=== PATIENT | female | born 1960 | race Caucasian/White ===

== ENCOUNTER 2019-09-30 08:55 | Emergency (ER) | payer MEDICAID ==
[~2019-09-30] VITALS: Ht 157.5 cm; Wt 81.8 kg
[2019-09-30 09:10] VITALS: BP 112/69
[2019-09-30] MEDS ORDERED: IBUP-1984 PO (10:52)
== END 2019-09-30 11:01 | disposition home or self-care (01) ==
LOC: ER 08:55
DX: S80.11XA Contusion of right lower leg, initial encounter (principal); Z79.899 Other long term (current) drug therapy; W01.0XXA Fall on same level from slipping, tripping and stumbling without subsequent striking against object, initial encounter; Y93.89 Activity, other specified; Y92.89 Other specified places as the place of occurrence of the external cause; Y99.8 Other external cause status
CPT/HCPCS: 73590; 99283

== ENCOUNTER → 2019-11-16 | Day surgery (SDC) | payer MEDICAID ==
[~2019-11-16] VITALS: Ht 157.5 cm; Wt 87.3 kg
[2019-11-16] VITALS (8 sets, daily range): BP systolic 96–126; BP diastolic 55–73
[~2019-11-16] MED LIST: BUPIVAcaine/PF 2.5 mg/ml (0.25%) 30ml vial ONE; LIDOcaine 1% 30ml preserv. free vial ONE; MIDAZolam 5mg/5ml vial ONE; NO HOME MEDS; acetaminophen 1,000mg/100ml IV 100 ML IV PRN; cefazolin/dext.iso 2gm/100ml 100 ML IV ONE; famotidine 20mg tablet PO ONE; fentaNYL/PF 50MCG/1 ML 2ML syringe ONE; meperidine/PF 25mg/ml syringe IV PRN; morphine 2 MG/ML inj. syringe IV PRN; morphine 4 MG/ML inj SYRINge IV PRN; ondansetron/PF 4mg/2ml inj IV PRN; proCHLORperazine 10 MG/2 ml inj IV PRN; propofol inj 20 ML IV ONE; ringers solution, lacted 1,000 ML IV SCH
[2019-11-16 08:16] LABS: ALBUMIN 3.4 G/DL (3.4-5.0); ALBUMIN/GLOBULIN RATIO 0.9 (1.1-1.5); ALKALINE PHOSPHATASE 143 IU/L (46-116); BLOOD UREA NITROGEN 13 MG/DL (7-18); BUN/CREATININE RATIO 15.7 (6.6-38.0); CALCIUM 8.4 MG/DL (8.5-10.1); CHLORIDE 105 MMOL/L (99-107); CREATININE 0.83 MG/DL (0.40-0.90); PRE OP ALT 43 U/L (30-65); PRE OP ANION GAP 8 (8-16); PRE OP AST 54 U/L (10-37); PRE OP BILIRUB, TOTAL 2.2 MG/DL (0.0-1.0); PRE OP GLUCOSE 99 MG/DL (70-104); PRE OP SODIUM 143 MMOL/L (135-145); TOTAL CARBON DIOXIDE 29.9 MMOL/L (24-32); TOTAL PROTEIN 7.4 G/DL (6.4-8.2); eGFR 70 ML/MIN
[2019-11-16 08:22] LABS: BASOPHILS % (AUTO) 0.5 % (0-1); EOSINOPHILS # (AUTO) 0.1 X10'3 (0-0.9); EOSINOPHILS % (AUTO) 2.4 % (0-6); LYMPHOCYTES # (AUTO) 1.8 X10'3 (1.1-4.8); LYMPHOCYTES % (AUTO) 37.1 % (21-51); MEAN CORPUSCULAR HEMOGLOBIN 28.4 PG (27.0-31.0); MEAN CORPUSCULAR HGB CONC 33.8 g/dL (33.0-36.5); MEAN CORPUSCULAR VOLUME 84.2 FL (78-98); MONOCYTES # (AUTO) 0.4 X10'3 (0-0.9); MONOCYTES % (AUTO) 7.9 % (2-12); NEUTROPHILS # (AUTO) 2.6 X10'3 (1.8-7.7); NEUTROPHILS % (AUTO) 52.1 % (42-75); PRE OP HEMATOCRIT 41.9 % (35.0-45.0); PRE OP HEMOGLOBIN 14.2 g/dL (12.0-16.0); PRE OP PLATELET COUNT 165 X10'3 (140-440); RED BLOOD COUNT 4.98 X10'6 (4.20-5.60); RED CELL DISTRIBUTION WIDTH 15.8 % (11.5-14.5)
--- NOTE | 2019-11-16 10:20 | NUR ---
RECIEVED FROM OR VIA [facility] ACCOMPANIED BY ANESTHESIOLOGIST DR BECKFORD, REPORT GIVEN. PT A&O, DENIES PAIN AT THIS TIME. 20 GAUGE PIV L HAND PATENT AND RUNNING LR AT 100 ML/HR, DANIELLE, F[place], 4X4 AND FOAM TAPE DRESSING R UPPER BACK CDI. Addendum: 11/16/19 at 1101 by Flora Thompson RN Amended: Links added.
--- NOTE | 2019-11-16 11:20 | NUR ---
PT A&O, DENIES PAIN AT THIS TIME. 20 GAUGE PIV L HAND REMOVED, CATHETER TIP INTACT, SANTOS, VSS, 4X4 AND FOAM TAPE DRESSING R UPPER BACK CDI. DISCHARGE INSTRUCTIONS GIVEN, PT EXPRESSED UNDERSTANDING, TRANSFERRED VIA WHEELCHAIR TO UBER RIDE TO HOME.
== END | disposition home or self-care (01) ==
LOC: PAS 06:21
PROVIDERS: ATTEND Surgery
DX: R22.2 Localized swelling, mass and lump, trunk (principal); M79.89 Other specified soft tissue disorders; Z79.899 Other long term (current) drug therapy; Z87.891 Personal history of nicotine dependence; Z98.84 Bariatric surgery status
CPT/HCPCS: 21931; 36415; 80053; 85025; 93005; J2001; J2250; J2704; J3010; J3490; A4215; A4618; A6449; A7000; J7120

== ENCOUNTER 2019-11-30 08:00 | Outpatient (CLI) | payer MEDICAID ==
[~2019-11-30] VITALS: Ht 157.5 cm; Wt 86.2 kg
[~2019-11-30 08:00] MED LIST changes: -BUPIVAcaine/PF 2.5 mg/ml (0.25%) 30ml vial ONE; -LIDOcaine 1% 30ml preserv. free vial ONE; -MIDAZolam 5mg/5ml vial ONE; -acetaminophen 1,000mg/100ml IV 100 ML IV PRN; -fentaNYL/PF 50MCG/1 ML 2ML syringe ONE; -meperidine/PF 25mg/ml syringe IV PRN; -morphine 2 MG/ML inj. syringe IV PRN; -morphine 4 MG/ML inj SYRINge IV PRN; -ondansetron/PF 4mg/2ml inj IV PRN; -proCHLORperazine 10 MG/2 ml inj IV PRN; -propofol inj 20 ML IV ONE
== END 2019-11-30 23:59 | disposition home or self-care (01) ==
LOC: PRE-OP 08:00 → EDSTATUS 11:30 → PRE-OP 23:59
PROVIDERS: ATTEND Surgery
DX: L72.3 Sebaceous cyst (principal); Z53.8 Procedure and treatment not carried out for other reasons
CPT/HCPCS: J7120

== ENCOUNTER 2020-02-01 10:11 | Day surgery (SDC) | payer MEDICAID ==
[2020-01-25 16:09] LABS: BASOPHILS % (AUTO) 0.5 % (0-1); EOSINOPHILS # (AUTO) 0.1 X10'3 (0-0.9); EOSINOPHILS % (AUTO) 1.3 % (0-6); LYMPHOCYTES % (AUTO) 41.9 % (21-51); MEAN CORPUSCULAR HGB CONC 33.1 g/dL (33.0-36.5); MEAN CORPUSCULAR VOLUME 84.5 FL (78-98); MEAN PLATELET VOLUME 8.8 FL (7.4-10.4); MONOCYTES # (AUTO) 0.2 X10'3 (0-0.9); MONOCYTES % (AUTO) 4.1 % (2-12); NEUTROPHILS # (AUTO) 2.5 X10'3 (1.8-7.7); NEUTROPHILS % (AUTO) 52.2 % (42-75); PRE OP HEMATOCRIT 43.9 % (35.0-45.0); PRE OP HEMOGLOBIN 14.5 g/dL (12.0-16.0); PRE OP PLATELET COUNT 256 X10'3 (140-440); RED BLOOD COUNT 5.19 X10'6 (4.20-5.60); RED CELL DISTRIBUTION WIDTH 16.5 % (11.5-14.5)
[2020-01-25 16:18] LABS: ALBUMIN 3.7 G/DL (3.4-5.0); ALBUMIN/GLOBULIN RATIO 0.9 (1.1-1.5); ALKALINE PHOSPHATASE 139 IU/L (46-116); BLOOD UREA NITROGEN 14 MG/DL (7-18); BUN/CREATININE RATIO 17.3 (6.6-38.0); CALCIUM 8.8 MG/DL (8.5-10.1); CHLORIDE 106 MMOL/L (99-107); CREATININE 0.81 MG/DL (0.40-0.90); PRE OP ALT 45 U/L (30-65); PRE OP ANION GAP 10 (8-16); PRE OP AST 43 U/L (10-37); PRE OP BILIRUB, TOTAL 0.9 MG/DL (0.0-1.0); PRE OP GLUCOSE 89 MG/DL (70-104); PRE OP POTASSIUM 4.2 MMOL/L (3.4-5.1); PRE OP SODIUM 144 MMOL/L (135-145); TOTAL CARBON DIOXIDE 28.1 MMOL/L (24-32); eGFR 72 ML/MIN
[~2020-02-01] VITALS: Ht 157.5 cm; Wt 83.8 kg
[2020-02-01] VITALS (9 sets, daily range): BP systolic 111–139; BP diastolic 60–77
[~2020-02-01 10:11] MED LIST changes: +ceFAZolin 2gm in dextrose, iso 50 ML IV ONE; -cefazolin/dext.iso 2gm/100ml 100 ML IV ONE
[2020-02-01] MEDS ORDERED: BUPIVAcaine/PF 2.5 mg/ml (0.25%) 30ml vial ONE (12:01)
[2020-02-01] MEDS ORDERED: LIDOcaine 1% 30ml preserv. free vial ONE (12:01)
[2020-02-01] MEDS ORDERED: sevoflurane 250ml liquid IH ONE (12:26)
[2020-02-01] MEDS ORDERED: midazolam 2 mg/2 ml injection ONE (12:27)
[2020-02-01] MEDS ORDERED: fentaNYL/PF 50MCG/1 ML 2ML syringe ONE (12:27)
[2020-02-01] MEDS ORDERED: propofol inj 20 ML IV ONE (12:29)
[2020-02-01] MEDS ORDERED: glycopyrrolate 0.2mg/ml inj ONE (13:10)
[2020-02-01] MEDS ORDERED: rocuronium 10mg/ml inj IV ONE (13:10)
[2020-02-01] MEDS ORDERED: neostigmine methylsulfate 1 MG/ML 10ml vial ONE (13:10)
--- NOTE | 2020-02-01 13:36 | NUR ---
Received from OR via , accompanied by Anesthesiologist DR YEUNG and report given by Anesthesiolgist. AWAKENS TO VOICE. VITALS STABLE. DRESSINGS DI. AHSAN PAIN.
[2020-02-01] MEDS ORDERED: HYDROcodone/acetaminophen 5mg/325mg tablet PO PRN (13:40)
--- NOTE | 2020-02-01 14:46 | NUR ---
AWAKE AND ORIENTED. VITALS STABLE. DRESSINGS DI. AHSAN PAIN. HOME WITH HER DAUGHTER AT THIS TIME.
== END 2020-02-01 14:46 | disposition home or self-care (01) ==
LOC: PAS 10:11
PROVIDERS: ATTEND Surgery
DX: R22.32 Localized swelling, mass and lump, left upper limb (principal); L90.5 Scar conditions and fibrosis of skin; D17.22 Benign lipomatous neoplasm of skin and subcutaneous tissue of left arm; E66.9 Obesity, unspecified; Z68.33 Body mass index [BMI] 33.0-33.9, adult; Z79.899 Other long term (current) drug therapy; Z98.84 Bariatric surgery status; Z72.89 Other problems related to lifestyle; Z83.3 Family history of diabetes mellitus; Z82.49 Family history of ischemic heart disease and other diseases of the circulatory system; Z80.41 Family history of malignant neoplasm of ovary; Z87.891 Personal history of nicotine dependence; R20.8 Other disturbances of skin sensation; Z11.59 Encounter for screening for other viral diseases
CPT/HCPCS: 11406; 12034; 23071; 36415; 80053; 82948; 85025; J2001; J2250; J2704; J2710; J3010; J3490; J7120; U0003; A4215; A4618; A7000